=== PATIENT | female | born 1955 | race Caucasian/White ===

== ENCOUNTER 2020-03-17 19:29 | Emergency (ER) | payer OTHER ==
--- OUTSIDE RECORDS SUMMARY | 2020-03-17 19:31 | XMS REPORT | Continuity of Care Document ---
:1955 Author Organization [facility] t Address [address] [place] [address] Care Team Providers Name Role Phone Natalya Silva MD Attending Clinician Cuauhtemoc ARREOLA Attending Clinician Filiberto ARREOLA R Attending Clinician Problems This patient has no known problems. Allergies, Adverse Reactions, Alerts This patient has no known allergies or adverse reactions. Medications This patient has no known medications. Procedures This patient has no known procedures. Encounters Start End Encounter Admission Attending Care Care Encounter Source Date/Time Date/Time Type Type Clinicians Facility Department ID 2020-03-13 2020-03-13 Refill Raza Silva [facility] [id number] 00:00:00 00:00:00 Natalya Leyva [id number] [place] [id number] Professio [phone] nal [address] [place] [address] 2020-03-13 2020-03-13 Refill Cuauhtemoc [facility] [id number] 00:00:00 00:00:00 Miguel Ángel Leyva [id number] [place] [id number] Professio [id number] nal 044 [facility] 2020-02-20 2020-02-20 Office Abilio De Los Santos [facility] [id number] 08:26:37 10:27:19 Visit [facility] [id number] EYE [id number] [place] [phone] [id number] Results This patient has no known results.
--- OUTSIDE RECORDS SUMMARY | 2020-03-17 19:32 | XMS REPORT | Summary of Care ---
:1955 Author Organization [facility] - Health Address [address] [place], [place] [address] Care Team Providers Name Role Phone Kasey Louis MD Primary Care Provider [phone] Kim Odonnell MD Unavailable Encounter Details Date Type Department Care Team Description 12/23/2019 Orders Only [facility] Doctor Unassigned, No [address] [facility] [place] [address] Allergies Active Allergy Reactions Severity Noted Date Comments Morphine Sulfate 07/14/2005 documented as of this encounter (statuses as of 12/23/2019) Medications Medication Sig Dispensed Refills Start Date End Date Status Diclofenac Sodium Take 2-4 grams 100 g 3 04/07/2017 Active (VOLTAREN) 1 % twice a day as gelIndications: needed for pain Trochanteric bursitis of right hip bacitracin-polymyxin B Place 0.5 Inches 3.5 g 3 11/15/2017 Active oph 500-10,000 in both eyes unit/gram ophthalmic every 8 (eight) ointment hours. latanoprost 0.005 % Place 1 Drop in 7.5 mL 4 12/14/2017 Active ophthalmic drops both eyes at bedtime. traMADOL 50 mg Take 1 tablet by 60 tablet 0 09/19/2018 Active tabletIndications: mouth every 6 Cervicalgia, Chronic (six) hours as low back pain without needed for Pain sciatica, unspecified (scale 7-10). back pain laterality levothyroxine 112 mcg Take 1 tablet by 90 tablet 3 01/09/2019 Active tabletIndications: mouth every Hypothyroidism, morning. unspecified type lisinopril 10 mg Take 1 tablet by 90 tablet 5 01/09/2019 Active tabletIndications: mouth daily. Essential hypertension traZODone 50 mg Take 1 tablet by 30 tablet 5 07/05/2019 Active tabletIndications: mouth at Insomnia, unspecified bedtime. type ezetimibe 10 mg Take 1 tablet by 90 tablet 1 07/05/2019 Active tabletIndications: mouth daily. Dyslipidemia, Type 2 diabetes mellitus without complication, without long-term current use of insulin gabapentin 300 mg Take 1 capsule 90 capsule 5 07/05/2019 Active capsuleIndications: by mouth 3 Chronic low back pain (three) times without sciatica, daily. unspecified back pain laterality, Chronic pain syndrome glipiZIDE 10 mg Take 1 tablet by 90 tablet 3 07/05/2019 Active tabletIndications: Type mouth daily. 2 diabetes mellitus without complication, without long-term current use of insulin metFORMIN 1,000 mg Take 1 tablet by 60 tablet 11 07/05/2019 Active tabletIndications: Type mouth 2 (two) 2 diabetes mellitus times daily with without complication, meals. without long-term current use of insulin doxycycline hyclate 100 Take 1 tablet by 20 tablet 0 0 Active mg tabletIndications: mouth 2 (two) Chronic low back pain times daily. without sciatica, unspecified back pain laterality, Acute cystitis without hematuria methocarbamol 500 mg TAKE 1 TABLET BY 180 tablet 1 09/30/2019 Active tabletIndications: MOUTH TWICE Chronic right shoulder DAILY NEEDED pain FOR PAIN BYDUREON BCISE 2 inject 2 mg 4 Syringe 2 09/30/2019 Active mg/0.85 mL under the skin AtInIndications: Type 2 weekly. diabetes mellitus without complication, without long-term current use of insulin MELOXICAM 15 mg Take 1 tablet by 90 tablet 0 10/15/2019 Active tabletIndications: mouth once daily Arthritis documented as of this encounter (statuses as of 12/23/2019) Active Problems Problem Noted Date Acute cystitis without hematuria 07/08/2019 Insomnia, unspecified type 07/05/2019 Anxiety 07/05/2019 Chronic low back pain without sciatica, unspecified ba ck pain laterality 07/05/2019 Chronic pain syndrome 07/05/2019 Need for vaccination against Streptococcus pneumoniae using pneumococcal 07/05/2019 conjugate vaccine 13 Need for influenza vaccination 07/05/2019 Acute right-sided low back pain without sciatica 07/04 Dyslipidemia 07/05/2019 Neuropathy 07/05/2019 Muscle spasticity 07/05/2019 Dermatochalasis, unspecified laterality 09/05/2017 Overview: Added automatically from request for andres yin [id number] Myogenic ptosis, bilateral 09/05/2017 Overview: Added automatically from request for andres yin [id number] Pseudophakia of left eye 07/13/2017 Senile nuclear sclerosis right eye 07/13/2017 Essential hypertension 11/30/2016 Dermatochalasis 01/12/2016 Glaucoma suspect of both eyes 01/12/2016 Vitamin D deficiency 11/04/2015 AC separation, type 3, left, sequela 10/01/2015 Postoperative hypothyroidism 05/04/2015 Hyperlipidemia 05/04/2015 Hypocalcemia 05/04/2015 Postmenopausal 05/04/2015 Cervicalgia of sowealjf-lkvnuje-yjlcr region 5 Arthropathy of cervical facet joint 02/15/2015 Medicare annual wellness visit, initial 01/06/2015 Type 2 diabetes mellitus without complication 10/10/19 15 Dizziness and giddiness 12/27/2005 documented as of this encounter (statuses as of 12/23/2019) Resolved Problems Problem Noted Date Resolved Date Senile nuclear sclerosis, bilateral 02/13/201706/29 Overview: Added automatically from request for andres yin [id number] Cataracts, bilateral 01/12/2016 07/13/2017 Chest pain 12/26/2015 07/05/2019 Scarlet albicans infection 11/13/2015 07/05/2019 documented as of this encounter (statuses as of 12/23/2019) Immunizations Name Administration Dates Next Due Influenza Virus Vaccine 12/23/2017 Influenza Virus Vaccine Quad ID [id number] YRS 06/19/2017, 2014 Pneumococcal 13 Conjugate, PCV13 (Prevnar 13) 07/05/2019 documented as of this encounter Social History Tobacco Use Types Packs/Day Years Used Date Former Smoker Cigarettes 1 28 Quit: 10/09/18 97 Smokeless Tobacco: Never Used Alcohol Use Drinks/Week oz/Week Comments Yes rarely Sex Assigned at Date Recorded Not on file COVID-19 Exposure Response Date Recorded In the last month, have you been in contact with No / Unsure 12/19/2019 10:08 AM CDT someone who was confirmed or suspected to have Coronavirus / COVID-19? documented as of this encounter Last Filed Vital Signs Not on filedocumented in this encounter Plan of Treatment Date Type Specialty Care Team Description 01/13/2020 Hospital Encounter Surgery Favio Hahn MD [address], [place] [phone] 01/13/2020 Surgery Surgery Favio Hahn CERVICAL EP CLAUDINE Caruso MD STEROID INJECTION [address] [place] [phone] 05/06/2020 Office Visit Family Medicine Miguel Ángel Posadas MD [address] [place] [address] Health Maintenance Due Date Last Done Comments DTaP,Tdap,and Td Vaccines (1 - 1973 Tdap) COLON CANCER SCREENING ANNUAL 2004 FIT/FOBT COLON CANCER SCREENING FIT DNA 2004 EVERY 3 YEARS COLON CANCER SCREENING 2004 SIGMOIDOSCOPY EVERY 5 YEARS Zoster Recombinant Vaccine 2004 (SHINGRIX) (1 of 2) Breast Cancer Screening 06/22/2018 06/22/2017 (MAMMOGRAM) EYE EXAM 07/13/2018 07/13/2017, 04/14/2017, 03/07/2017, Additional history exists FOOT EXAM 11/08/2018 11/08/2017, 11/08/2017, 08/07/2017, Additional history exists URINE MICROALBUMIN 11/13/2018 11/13/2017, 11/04/2015, 10/09/2014 Medicare Wellness Visit 2019 Osteoporosis Screening 2019 INFLUENZA VACCINE (#1) 2019 12/23/2017 HgA1C 01/05/2020 07/05/2019, 10/31/2018, 11/08/2017, Additional history exists CREATININE (SERUM) 07/04/2020 07/05/2019, 11/13/2017, 03/15/2017, Additional history exists LDL-C 07/04/2020 07/05/2019, 11/13/2017, 11/30/2016, Additional history exists PNEUMOCOCCAL VACCINES 65+ (2 of 2 07/04/2020 07/05/2019 - PPSV23) Depression Screening 12/08/2020 12/09/2019 COLONOSCOPY 03/17/2021 03/17/2011 (Previously completed) Colorectal Cancer Screening 03/17/2021 HEPATITIS C (HCV) SCREEN Completed 04/19/2017 documented as of this encounter Implants Implanted Type Area Leases And Land Supervisor Device Shelf Model / Serial Identifier Expiration / Lot Date Lens, Ronnie #[id number] 20.5d - [id number] LENS Left: Eye Ronnie 01/28/2021 SN60WF 20.5D / Implanted: Qty: 1 on 03/06/2017 by Abilio De Los Santos MD at [facility] [place] [address] [id number] / 0 documented as of this encounter Procedures Procedure Name Priority Date/Time Associated Diagnosis Comme nts ASSIGNMENT OF BENEFITS Routine 12/23/2019 6:28 AM CDT documented in this encounter Results Not on filedocumented in this encounter Insurance Payer Benefit Plan / Subscriber ID Effective Dates Phone Addre ss Type Group MEDICARE MEDICARE PART [id number] 2019-Presen [phone] [address] Medicare A & B t 2 [id number] [place] [address] [facility] MEDICAID OF [id number] 2019-Presen [phone] [address] Medicaid [place] t 0 [id number] [place] [address] documented as of this encounter
--- OUTSIDE RECORDS SUMMARY | 2020-03-17 19:32 | XMS REPORT | Summary of Care ---
:1955 Author Organization [facility] Address [address] [place] [address] Care Team Providers Name Role Phone Kasey Louis MD Primary Care Provider [phone] Kim Odonnell MD Unavailable Reason for Visit Reason Comments Pre-Op Exam Auth/Cert Status Reason Specialty Diagnoses / Referred By Referred To Procedures Contact Contact Clinical Medical Diagnoses Cervicalgia Cervicalgia [M54.2] [facility] Procedures COVID-19 (ID NOW RAPID TESTING) COVID PREOP [address] [place] [address] Encounter Details Date Type Department Care Team Description 12/20/2019 Laboratory Only [facility] Favio Hahn MD [id number] [place] [address] Preop testing Phlebotomy Only, [facility] (Primary Dx) [facility] [address] [place] [address] Allergies Active Allergy Reactions Severity Noted Date Comments Morphine Sulfate 07/14/2005 documented as of this encounter (statuses as of 12/20/2019) Medications Medication Sig Dispensed Refills Start Date [...] as of this encounter (statuses as of 12/20/2019) Active Problems Problem Noted Date Acute cystitis [...] Overview: Added automatically from request for andres annamaria [id number] Myogenic ptosis, bilateral 09/05/2017 Overview: Added automatically from request for andres annamaria [id number] Pseudophakia of left eye 07/13/2017 Senile nuclear sclerosis right eye 07/13/2017 Essential hypertension 11/30/2016 Dermatochalasis 01/12/2016 Glaucoma suspect of both eyes 01/12/2016 Vitamin D deficiency 11/04/2015 AC separation, type 3, left, sequela 10/01/2015 Postoperative hypothyroidism 05/04/2015 Hyperlipidemia 05/04/2015 Hypocalcemia 05/04/2015 Postmenopausal 05/04/2015 Cervicalgia of ewgjfrac-owysmzp-kewrp region 5 Arthropathy of cervical facet joint 02/15/2015 Medicare annual wellness visit, initial 01/06/2015 Type 2 diabetes mellitus without complication 10/10/19 15 Dizziness and giddiness 12/27/2005 documented as of this encounter (statuses as of 12/20/2019) Resolved Problems Problem Noted Date Resolved Date Senile nuclear sclerosis, bilateral 02/13/201706/29 Overview: Added automatically from request for andres annamaria [id number] Cataracts, bilateral 01/12/2016 07/13/2017 Chest pain 12/26/2015 07/05/2019 Scarlet albicans infection 11/13/2015 07/05/2019 documented as of this encounter (statuses as of 12/20/2019) Immunizations Name Administration Dates Next Due Influenza [...] Treatment Date Type Specialty Care Team Description 12/23/2019 Hospital Encounter Surgery Favio Hahn MD [address] [place] [address] [phone] 12/23/2019 Anesthesia Event Surgery Fontanilla, R III, DRILL SHARPENER OPERATOR [address] [place] [address] 12/23/2019 Surgery Surgery Favio Hahn CERVICAL SHAGUFTA Caruso MD STEROID INJECTION [address] [place] [address] 01/13/2020 Hospital Encounter Surgery Favio Hahn MD [address] [place] [phone] 01/13/2020 Surgery Surgery Favio Hahn CERVICAL SHAGUFTA Caruso MD STEROID INJECTION [address] [place] [phone] 05/06/2020 Office Visit Family Medicine Miguel Ángel Posadas MD [address] [place] [address] [address] [place] [address], [place] [address] [phone] Name Type Priority Associated Diagnoses Date/Ti me COVID-19 (ID NOW RAPID LAB Routine Preop testing 11/30 11:22 AM CDT TESTING) Name Type Priority Associated Diagnoses Order S chedule COVID-19 (ID NOW RAPID LAB Routine Preop testing Expe cted: 12/20/2019, TESTING) Expires: 2020 Health Maintenance Due Date Last Done Comments [...] of this encounter Implants Implanted Type Area Fuel Conversion Technician Device Shelf Model / Serial Identifier Expiration / Lot Date Lens, Ronnie #Sn60wf 20.5d - [id number] LENS Left: Eye Ronnie 01/28/2021 SN60WF 20.5D / Implanted: Qty: 1 on 03/06/2017 by Abilio De Los Santos MD at [facility] 2 [id number] / 0 documented as of this encounter Results Not on filedocumented in this encounter Visit Diagnoses Diagnosis Preop testing - Primary Preoperative examination, unspecified documented in this encounter Additional Health Concerns Infection Onset Date Last Indicated Resolved Time COVID-19 Rule Out 12/20/2019 12/20/2019 documented as of this encounter Insurance Payer Benefit Plan / Subscriber ID Effective Dates Phone Addre ss Type Group MEDICARE MEDICARE PART [id number] 2019-Presen [phone] [address] Medicare A & B t 2 [id number] [place] [address] [facility] MEDICAID OF [id number] 2019-Presen [phone] [address] Medicaid [place] t 0 [id number] [place] [address] documented as of this encounter
--- OUTSIDE RECORDS SUMMARY | 2020-03-17 19:32 | XMS REPORT | Summary of Care ---
:1955 Author Organization [facility] Address [address] [place] [address] Care Team Providers Name Role Phone Kasey Louis MD Primary Care Provider [phone] Kim Odonnell MD Unavailable Reason for Referral (Routine) Status Reason Specialty Diagnoses / Referred By Referred To Procedures Contact Contact New Request Diagnostic Diagnoses Cervicalgia of jyreoikr-hjvbvjf-rmqvq region [place], Radiology Procedures FL TIME OR (NON-REPORTABLE) Favio Caruso MD [id number], [place] [address] Reason for Visit Auth/Cert Status Reason Specialty Diagnoses / Procedures Referred By C ontact Referred To Contact Surgery Diagnoses Cervicalgia Radiculopathy, cervical region M54.2 (ICD-10-CM) - Cervicalgia Radiculopathy cervical region M54.12 (ICD-10-CM) - Radiculopathy, cervical region Ad c Pre/Pacu/Post Procedures [facility] CODING HELP [place] NJX DX/THER SBST INTRLMNR CRV/THRC W/IMG GDN CHG FLUOR NEEDLE/CATH SPINE/PARASPINAL DX/THER ADDON CERVICAL EPIDURAL STEROID INJECTION 10548 - [place] NJX DX/THER SBST INTRLMNR CRV/THRC W/IMG GDN [address] [place] [address] - CHG FLUOR NEEDLE/CATH SPINE/ PARASPINAL DX/THER ADDON [employer] [place], [place] [address] Phone: Fax: Encounter Details Date Type Department Care Team Description 12/23/2019 [facility] [place], [place] [address] kiran [address] [place] [address] [id number] [place] [phone] Allergies Active Allergy Reactions Severity Noted Date [...] Added automatically from request for andres annamaria [id number] Myogenic ptosis, bilateral 09/05/2017 Overview: Added automatically from request for andres annamaria [id number] Pseudophakia of left eye 07/13/2017 Senile nuclear sclerosis right eye 07/13/2017 Essential hypertension 11/30/2016 Dermatochalasis 01/12/2016 Glaucoma suspect of both eyes 01/12/2016 Vitamin D deficiency 11/04/2015 AC separation, type 3, left, sequela 10/01/2015 Postoperative hypothyroidism 05/04/2015 Hyperlipidemia 05/04/2015 Hypocalcemia 05/04/2015 Postmenopausal 05/04/2015 Cervicalgia of zyqndwhp-gzkxbge-xbosa region 5 Arthropathy of cervical facet joint 02/15/2015 Medicare annual wellness visit, initial 01/06/2015 Type 2 diabetes mellitus without complication 10/10/19 15 Dizziness and giddiness 12/27/2005 documented as of this encounter (statuses as of 12/23/2019) Resolved Problems Problem Noted Date Resolved Date Senile nuclear sclerosis, bilateral 02/13/201706/29 Overview: Added automatically from request for andres yin [id number] Cataracts, bilateral 01/12/2016 07/13/2017 Chest pain 12/26/2015 [...] of this encounter Last Filed Vital Signs Vital Sign Reading Time Taken Comments Blood Pressure 122/58 12/23/2019 8:10 AM CDT Pulse 81 12/23/2019 8:10 AM CDT Temperature 37.1 C (98.8 F) 12/23/2019 7:42 AM CDT Respiratory Rate 15 12/23/2019 8:10 AM CDT Oxygen Saturation 99% 12/23/2019 8:10 AM CDT Inhaled Oxygen Concentration - - Weight 78.9 kg (174 lb) 12/23/2019 6:43 AM CDT Height 160 cm (5' 3") 12/23/2019 6:43 AM CDT Body Mass Index 30.82 12/23/2019 6:43 AM CDT documented in this encounter Discharge Summaries Favio Hahn MD - 12/23/2019 7:41 AM CDTCONDITION AT DISCHARGE: Patient was discharged from the facility in stable condition. Please see andrea parham instructions. FOLLOW UP CARE: See post op instructions. DISCHARGE DISPOSITION: HOME DISCHARGE INSTRUCTIONS GIVEN TO: PATIENT documented in this encounter Discharge Instructions Avelina Caban RN - 12/23/2019POST OPERATIVE DISCHARGE INSTRUCTIONS For patients who have had local anesthesia with sedation or general anesthesia: 1. The medicine which was used for sedation or to put you to sleep will be acting in your body for the next 24 hours. You might feel a little sleepy when you get home. This feeling will slowly wear off. For the next 24 hours, the adult patient should not: A. Drive a car, operate machinery or power tools. B. Drink any alcoholic beverages (including beer). C. Make any important decisions, such as sign important papers. D. Children should rest at home, but may be up and about according to the doctor's instructions. 2. You may have some pain. A prescription for pain may be given by the doctor. This should be taken as directed. If the doctor prescribes nothing for pain you may take a non-prescription pain medication, which can be purchased at the drug store. Please follow directions on the label. 3. Eat light foods (Jell-o, soup, crackers, soft drinks, etc.) as tolerated without feeling sick to your stomach, then progressing to more solid foods. Drink as much liquid as you can tolerate. 4. We strongly suggest that a responsible adult be with you for the rest of the day and also during the night for your protection and safety. 5. Refer any questions regarding your condition and report any of the following signs to your surgeon: A. Excessive bleeding from surgical area. B. Excessive swelling of or around surgical area. C. Redness of surgical area. D. Temperature of 101 degrees or above. E. Excessive pain not relieved by medication. F. Numbness or weakness. 6. Call Dr. Hahn for any problems and for follow up appointment. 7. If unable to reach your physician, call [facility] at [phone] for physician freight traffic consultant. In case of emergency, go to nearest emergency room. 8. Your symptoms may remain the same or occasionally become a little worse over the next 48 hours. Rest and the application of a cold compress may resolve these symptoms. documented in this encounter Plan of Treatment Date Type Specialty Care Team Description 01/13/2020 Hospital Encounter Surgery Favio Hahn MD [address] [place] [phone] 01/13/2020 Surgery Surgery Favio Hahn CERVICAL EP CLAUDINE Caruso MD STEROID INJECTION [address] [place] [address] 05/06/2020 Office Visit Family Medicine Miguel Ángel Posadas MD [address] [facility] [address] [place], [place] [address] Name Type Priority Associated Diagnoses Date/Ti me FL TIME OR IMAGING Routine Cervicalgia of 12/23/2019 7 :45 AM CDT (NON-REPORTABLE) wmtumaeq-riwhzaf-khgwb region Name Type Priority Associated Diagnoses Order S chedule POCT Glucose LAB Routine ONCE for 1 Occu rrences starting 2019 until 0 FL TIME OR IMAGING Routine Cervicalgia of ONCE for 1 Oc currences (NON-REPORTABLE) cxzlgscq-umfrlfe-hwqic s tarting 12/23/2019 region until 0 Health Maintenance Due Date Last Done Comments [...] 2 07/04/2020 07/05/2019 - PPSV23) Depression Screening 12/22/2020 12/23/2019 COLONOSCOPY 03/17/2021 03/17/2011 (Previously completed) Colorectal Cancer Screening 03/17/2021 HEPATITIS C (HCV) SCREEN Completed 04/19/2017 documented as of this encounter Implants Implanted Type Area Account Services Manager Device Shelf Model / Serial Identifier Expiration / Lot Date Lens, Ronnie #[id number] 20.5d - [id number] LENS Left: Eye Ronnie 01/28/2021 SN60WF 20.5D / Implanted: Qty: 1 on 03/06/2017 by Abilio De Los Santos MD at [facility] 3 [id number] / 0 documented as of this encounter Results Not on filedocumented in this encounter Visit Diagnoses Diagnosis Cervicalgia of qhkhnuob-cigdxka-xrcni re gion - Primary documented in this encounter Administered Medications Medication Order MAR Action Action Date Dose Rate Site lidocaine 1% (PF) (XYLOCAINE) injection 1 mL 1 mL, Infiltration, PRN, Starting Mon at 0652, Until Discontinued, Routine, Surgery/Procedure, DSU Pre-op Medication Order MAR Action Action Date Dose Rate Site lactated ringers IV infusion New Bag 12/23/2019 7:03 AM CDT 1,000 mL 20 mL/hr 1,000 mL at 20 mL/hr, 1,000 mL, IV Infusion, ONCE, 1 dose, 12/23/19 at 0700, Routine, DSU Pre-op documented in this encounter Insurance Payer Benefit Plan / Subscriber ID Effective Dates Phone Addre ss Type Group MEDICARE MEDICARE PART [id number] 2019-Presen [phone] [address] Medicare A & B t 2 [id number] [place] [address] [facility] MEDICAID OF [id number] 2019-Presen [phone] [address] Medicaid [place] t 0 [id number] [place] [address] documented as of this encounter
--- OUTSIDE RECORDS SUMMARY | 2020-03-17 19:32 | XMS REPORT | Summary of Care ---
:1955 Author Organization [facility] Address [address] [place] [address] Care Team Providers Name Role Phone Kasey Louis MD Primary Care Provider Kim Odonnell MD Unavailable Reason for Visit Reason Comments Rx Concern/Question Encounter Details Date Type Department Care Team Description 12/13/2019 Telephone [facility] Pediatric Melita Louis Rx Concern/Question and Adult Primary Care- MD Arin [address], [address] [place] [address] [place] [address] [phone] Allergies Active Allergy Reactions Severity Noted Date Comments Morphine Sulfate 07/14/2005 documented as of this encounter (statuses as of 01/03/2020) Medications Medication Sig Dispensed Refills Start Date [...] as of this encounter (statuses as of 01/03/2020) Active Problems Problem Noted Date Acute cystitis [...] Added automatically from request for andres annamaria [id number] Myogenic ptosis, bilateral 09/05/2017 Overview: Added automatically from request for andres annamaria [id number] Pseudophakia of left eye 07/13/2017 Senile nuclear sclerosis right eye 07/13/2017 Essential hypertension 11/30/2016 Dermatochalasis 01/12/2016 Glaucoma suspect of both eyes 01/12/2016 Vitamin D deficiency 11/04/2015 AC separation, type 3, left, sequela 10/01/2015 Postoperative hypothyroidism 05/04/2015 Hyperlipidemia 05/04/2015 Hypocalcemia 05/04/2015 Postmenopausal 05/04/2015 Cervicalgia of cjdikpbt-xhnreyt-uphii region 5 Arthropathy of cervical facet joint 02/15/2015 Medicare annual wellness visit, initial 01/06/2015 Type 2 diabetes mellitus without complication 10/10/19 15 Dizziness and giddiness 12/27/2005 documented as of this encounter (statuses as of 01/03/2020) Resolved Problems Problem Noted Date Resolved Date Senile nuclear sclerosis, bilateral 02/13/201706/29 Overview: Added automatically from request for andres annamaria [id number] Cataracts, bilateral 01/12/2016 07/13/2017 Chest pain 12/26/2015 07/05/2019 Scarlet albicans infection 11/13/2015 07/05/2019 documented as of this encounter (statuses as of 01/03/2020) Immunizations Name Administration Dates Next Due Influenza [...] Signs Not on filedocumented in this encounter Miscellaneous Notes Telephone Encounter - Alyssa Rosado RN - 01/03/2020 2:19 PM CDTThis is being sent to you as part of [facility] Chart Maintenance. The encounter has been open longer than72 hours. Encounter closed. Alyssa LANDRY RN- Nurse Clinician REPLACED BY [facility] elephone Encounter - Nilo Palmer - 12/13/2019 10:14 AM CDTPrescription change request paperwork placed in provider's box. documented in this encounter Plan of Treatment Date Type Specialty Care Team Description 01/13/2020 Hospital Encounter Surgery Favio Hahn MD [address] [place] [phone] 01/13/2020 Surgery Surgery Favio Hahn CERVICAL EP CLAUDINE Caruso MD STEROID INJECTION [address] [phone] 05/06/2020 Office Visit Family Medicine Miguel Ángel Posadas MD [facility] [address] [place], [place] [address] Health Maintenance Due Date [...] of this encounter Implants Implanted Type Area User Interface Engineer Device Shelf Model / Serial Identifier Expiration / Lot Date Lens, Ronnie #[id number] 20.5d - [id number] LENS Left: Eye Ronnie 01/28/2021 SN60WF 20.5D / Implanted: Qty: 1 on 03/06/2017 by Abilio De Los Santos MD at [facility] 6 [id number] / 0 documented as of this encounter Results Not on filedocumented in this encounter Additional Health Concerns Infection Onset Date Last Indicated Resolved Time COVID-19 Rule Out 12/20/2019 12/20/2019 12/20/2019 12: 03 PM CDT documented as of this encounter Insurance Payer Benefit Plan / Subscriber ID Effective Dates Phone Addre ss Type Group MEDICARE MEDICARE PART [id number] 2019-Raúl [phone] [address] Medicare A & B t 2 [id number] [place] [address] [facility] MEDICAID OF [id number] 2019-Raúl [phone] [address] Medicaid [place] t 0 [id number] [place] [address] documented as of this encounter
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
--- OUTSIDE RECORDS SUMMARY | 2020-03-17 19:33 | XMS REPORT | Summary of Care ---
:1955 Author Organization [facility] Address [address] [place] [address] Care Team Providers Name Role Phone Kasey Louis MD Primary Care Provider [phone] Kim Odonnell MD Unavailable Reason for Visit Reason Comments LAB WORK Encounter Details Date Type Department Care Team Description 01/17/2020 Laboratory Only [facility] Favio Hahn MD [id number] [place] [address] Pre-operative Phlebotomy Only, Adc Test clearance (Primary [facility]) [address] [place] [address] Allergies Active Allergy Reactions Severity Noted Date Comments Morphine Sulfate 07/14/2005 documented as of this encounter (statuses as of 01/17/2020) Medications Medication Sig Dispensed Refills Start Date [...] as of this encounter (statuses as of 01/17/2020) Active Problems Problem Noted Date Acute cystitis [...] Added automatically from request for andres annamaria [id number] Myogenic ptosis, bilateral 09/05/2017 Overview: Added automatically from request for andres annamaria [id number] Pseudophakia of left eye 07/13/2017 Senile nuclear sclerosis right eye 07/13/2017 Essential hypertension 11/30/2016 Dermatochalasis 01/12/2016 Glaucoma suspect of both eyes 01/12/2016 Vitamin D deficiency 11/04/2015 AC separation, type 3, left, sequela 10/01/2015 Postoperative hypothyroidism 05/04/2015 Hyperlipidemia 05/04/2015 Hypocalcemia 05/04/2015 Postmenopausal 05/04/2015 Cervicalgia of azofaigt-lxnqstv-wrrwc region 5 Arthropathy of cervical facet joint 02/15/2015 Medicare annual wellness visit, initial 01/06/2015 Type 2 diabetes mellitus without complication 10/10/19 15 Dizziness and giddiness 12/27/2005 documented as of this encounter (statuses as of 01/17/2020) Resolved Problems Problem Noted Date Resolved Date Senile nuclear sclerosis, bilateral 02/13/201706/29 Overview: Added automatically from request for andres annamaria [id number] Cataracts, bilateral 01/12/2016 07/13/2017 Chest pain 12/26/2015 07/05/2019 Scarlet albicans infection 11/13/2015 07/05/2019 documented as of this encounter (statuses as of 01/17/2020) Immunizations Name Administration Dates Next Due Influenza [...] Signs Not on filedocumented in this encounter Nursing Notes Marcia Kong - 01/17/2020 1:00 PM CDTcovid documented in this encounter Plan of Treatment Date Type Specialty Care Team Description 01/20/2020 Anesthesia Event Surgery Abilio Sotelo C [address] [phone] 01/20/2020 Hospital Encounter Surgery Favio Hahn MD [address] [place] [address] [phone] 01/20/2020 Surgery Surgery Favio Hahn, CERVICAL EPIDURAL STEROID INJECTION [address] [place] [address] 05/06/2020 Office Visit Family Medicine Miguel Ángel Posadas MD [address] [place], [place] [address] [phone] Name Type Priority Associated Diagnoses Order S zhane COVID-19 (ID NOW RAPID LAB Routine Pre-operative felicita dawson Expected: 01/17/2020, TESTING) Expires: 2020 Health Maintenance Due Date [...] of this encounter Implants Implanted Type Area Engine Watchman Device Shelf Model / Serial Identifier Expiration / Lot Date Lens, Ronnie #Sn60wf 20.5d - [id number] LENS Left: Eye Ronnie 01/28/2021 SN60WF 20.5D / Implanted: Qty: 1 on 03/06/2017 by Abilio De Los Santos MD at [facility] 5 [id number] / 0 documented as of this encounter Results Not on filedocumented in this encounter Visit Diagnoses Diagnosis Pre-operative clearance - Primary Preoperative examination, unspecified documented in this encounter Additional Health Concerns Infection Onset Date Last Indicated Resolved Time COVID-19 Rule Out 01/17/2020 01/17/2020 documented as of this encounter Insurance Payer Benefit Plan / Subscriber ID Effective Dates Phone Addre ss Type Group MEDICARE MEDICARE PART [id number] 2019-Presen [phone] [address] Medicare A & B t 2 [id number] [place] [id number] [facility] MEDICAID OF [id number] 2019-Presen [phone] [address] Medicaid [place] t 0 [id number] [place] [address] documented as of this encounter
--- OUTSIDE RECORDS SUMMARY | 2020-03-17 19:33 | XMS REPORT | Summary of Care ---
:1955 Author Organization [facility] - Health Address [address] [place], [place] [id number] Care Team Providers Name Role Phone Kasey Louis MD Primary Care Provider [phone] Kim Odonnell MD Unavailable Encounter Details Date Type Department Care Team Description 01/17/2020 Orders Only [facility] Doctor Unassigned, No [address] [facility] [place] [address] Allergies Active Allergy Reactions Severity Noted Date [...] Added automatically from request for andres yin [id number] Myogenic ptosis, bilateral 09/05/2017 Overview: Added automatically from request for andres yin [id number] Pseudophakia of left eye 07/13/2017 Senile nuclear sclerosis right eye 07/13/2017 Essential hypertension 11/30/2016 Dermatochalasis 01/12/2016 Glaucoma suspect of both eyes 01/12/2016 Vitamin D deficiency 11/04/2015 AC separation, type 3, left, sequela 10/01/2015 Postoperative hypothyroidism 05/04/2015 Hyperlipidemia 05/04/2015 Hypocalcemia 05/04/2015 Postmenopausal 05/04/2015 Cervicalgia of imjaypwn-qgswaun-sopwa region 5 Arthropathy of cervical facet joint 02/15/2015 Medicare annual wellness visit, initial 01/06/2015 Type 2 diabetes mellitus without complication 10/10/19 15 Dizziness and giddiness 12/27/2005 documented as of this encounter (statuses as of 01/17/2020) Resolved Problems Problem Noted Date Resolved Date Senile nuclear sclerosis, bilateral 02/13/201706/29 Overview: Added automatically from request for andres yin [id number] Cataracts, bilateral 01/12/2016 07/13/2017 Chest pain 12/26/2015 [...] 01/20/2020 Anesthesia Event Surgery Abilio Sotelo [place] [address] [place] [id number] 01/20/2020 Hospital Encounter Surgery Favio Hahn MD [address], [place] [address] 01/20/2020 Surgery Surgery Favio Hahn, CERVICAL EPIDURAL STEROID INJECTION [address] [place] [address] 05/06/2020 Office Visit Family Medicine Miguel Ángel Posadas MD [address] [facility] [address] [place] [address] Health Maintenance Due Date [...] of this encounter Implants Implanted Type Area Gunner'S Mate Device Shelf Model / Serial Identifier Expiration / Lot Date Lens, Ronnie #[id number] 20.5d - [id number] LENS Left: Eye Ronnie 01/28/2021 SN60WF 20.5D / Implanted: Qty: 1 on 03/06/2017 by Abilio De Los Santos MD at [facility] 4 [id number] / 0 documented as of this encounter Procedures Procedure Name Priority Date/Time Associated Diagnosis Comme nts CONSENT/REFUSAL FOR Routine 01/17/2020 2:06 PM DIAGNOSIS AND TREATMENT CDT ASSIGNMENT OF BENEFITS Routine 01/17/2020 2:05 PM CDT documented in this encounter Results Not on filedocumented in this encounter Insurance Payer Benefit Plan / Subscriber ID Effective Dates Phone Addre ss Type Group MEDICARE MEDICARE PART [id number] 2019-Presen [phone] [address] Medicare A & B t 2 [id number] [place] [id number] [facility] MEDICAID OF [id number] 2019-Presen [phone] [address] Medicaid [place] t 0 [id number] [place] [address] documented as of this encounter
--- OUTSIDE RECORDS SUMMARY | 2020-03-17 19:34 | XMS REPORT | Summary of Care ---
:1955 Author Organization [facility] Address [address] [place] [id number] Care Team Providers Name Role Phone Kasey Louis MD Primary Care Provider Kim Odonnell MD Unavailable Reason for Referral (Routine) Status Reason Specialty Diagnoses / Referred By Referred To Procedures Contact Contact New Request Diagnostic Diagnoses Cervicalgia of zjeyjjks-fujmzrr-ahkdm region [place], Radiology Procedures FL TIME OR (NON-REPORTABLE) Favio Caruso MD [id number], [place] [address] Reason for Visit Auth/Cert Status Reason Specialty Diagnoses / Procedures Referred By C ontact Referred To Contact Surgery Diagnoses Cervicalgia Radiculopathy, cervical region Radiculopathy cervical region M54.12 (ICD-10-CM) - Radiculopathy, cervical region cervicalgia M54.2 (ICD-10-CM) - Cervicalgia Adc Pre/Pacu/Post Procedures [facility] CODING HELP [place] NJX DX/THER SBST INTRLMNR CRV/THRC W/IMG GDN CHG FLUOR NEEDLE/CATH SPINE/PARASPINAL DX/THER ADDON CERVICAL EPIDURAL STEROID INJECTION [id number] - [place] NJX DX/THER SBST INTRLMNR CRV/THRC W/IMG GDN [address] [place] [id number] - CHG FLUOR NEEDLE/CATH SPINE/ PARASPINAL DX/THER ADDON [address] [place], [place] [address] Phone: Fax: Encounter Details Date Type Department Care Team Description [facility]/20[facility] [place] [address] kiran [address] [place] [address] [id number] [place] [phone] Allergies Active Allergy Reactions Severity Noted Date [...] Added automatically from request for andres yin [id number] Myogenic ptosis, bilateral 09/05/2017 Overview: Added automatically from request for andres yin [id number] Pseudophakia of left eye 07/13/2017 Senile nuclear sclerosis right eye 07/13/2017 Essential hypertension 11/30/2016 Dermatochalasis 01/12/2016 Glaucoma suspect of both eyes 01/12/2016 Vitamin D deficiency 11/04/2015 AC separation, type 3, left, sequela 10/01/2015 Postoperative hypothyroidism 05/04/2015 Hyperlipidemia 05/04/2015 Hypocalcemia 05/04/2015 Postmenopausal 05/04/2015 Cervicalgia of ezfjlcxa-xfpeajn-lhmkp region 5 Arthropathy of cervical facet joint 02/15/2015 Medicare annual wellness visit, initial 01/06/2015 Type 2 diabetes mellitus without complication 10/10/19 15 Dizziness and giddiness 12/27/2005 documented as of this encounter (statuses as of 01/20/2020) Resolved Problems Problem Noted Date Resolved Date Senile nuclear sclerosis, bilateral 02/13/201706/29 Overview: Added automatically from request for andres yin [id number] Cataracts, bilateral 01/12/2016 07/13/2017 Chest pain 12/26/2015 [...] Sign Reading Time Taken Comments Blood Pressure 125/57 01/20/2020 8:42 AM CDT Pulse 98 01/20/2020 6:50 AM CDT Temperature 36.8 C (98.3 F) 01/20/2020 8:12 AM CDT Respiratory Rate 16 01/20/2020 8:42 AM CDT Oxygen Saturation 100% 01/20/2020 8:42 AM CDT Inhaled Oxygen Concentration - - Weight 78.5 kg (173 lb) 01/16/2020 2:00 PM CDT Height 160 cm (5' 3") 01/16/2020 2:00 PM CDT Body Mass Index 30.65 01/16/2020 2:00 PM CDT documented in this encounter Discharge Summaries Favio Hahn MD - 01/20/2020 8:11 AM CDTCONDITION AT DISCHARGE: Patient was discharged from the facility in stable condition. Please see andrea parham instructions. FOLLOW UP CARE: See post op instructions. DISCHARGE DISPOSITION: HOME DISCHARGE INSTRUCTIONS GIVEN TO: PATIENT documented in this encounter Discharge Instructions Yessica Devlin RN - 01/20/2020POST OPERATIVE DISCHARGE INSTRUCTIONS For patients who have [...] If unable to reach your physician, call [facility] at [phone] for physician bond runner. In case of emergency, go to nearest emergency room. 8. Your symptoms may remain the same or occasionally become a little worse over the next 48 hours. Rest and the application of a cold compress may resolve these symptoms. APPOINTMENT HAS BEEN SCHEDULED FOR: DATE: TIME: documented in this encounter Plan of Treatment Date Type Specialty Care Team Description 05/06/2020 Office Visit Family Medicine Miguel Ángel Posadas MD [address] [place] [address] [place], [place] [address] Name Type Priority Associated Diagnoses Date/Ti me FL TIME OR IMAGING Routine Cervicalgia of 01/20/2020 7 :22 AM CDT (NON-REPORTABLE) lvznfdsd-xobmydg-bhymc region Name Type Priority Associated Diagnoses Order S chedule POCT Glucose LAB Routine ONCE for 1 Occu rrences starting 2019 until 0 EKG-12 LEAD HEART STATION Routine ONCE for 1 Occ urrences ROUTINE starting 2019 until 0 FL TIME OR IMAGING Routine Cervicalgia of ONCE for 1 Oc currences (NON-REPORTABLE) gnpgicdc-vxmouoq-rkmoy s tarting 01/20/2020 region until 0 Health Maintenance Due Date [...] of this encounter Implants Implanted Type Area Medical Secretary Device Shelf Model / Serial Identifier Expiration / Lot Date Lens, Ronnie #[id number] 20.5d - [id number] LENS Left: Eye Ronnie 01/28/2021 SN60WF 20.5D / Implanted: Qty: 1 on 03/06/2017 by Abilio De Los Santos MD at [facility] [place] [address] [id number] / 0 documented as of this encounter Results Not on filedocumented in this encounter Visit Diagnoses Diagnosis Cervicalgia of lgvcnsbn-tygwhpl-qxwlc re gion - Primary documented in this encounter Insurance Payer Benefit Plan / Subscriber ID Effective Dates Phone Addre ss Type Group MEDICARE MEDICARE PART [id number] 2019-Presen [phone] [address] Medicare A & B t 2 [id number] [place] [id number] [facility] MEDICAID OF [id number] 2019-Presen [phone] [address] Medicaid [place] t 0 [id number] [place] [address] documented as of this encounter
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
--- OUTSIDE RECORDS SUMMARY | 2020-03-17 19:34 | XMS REPORT | Summary of Care ---
:1955 Author Organization [facility] - Health Address [address] [place], [place] [address] Care Team Providers Name Role Phone Kasey Louis MD Primary Care Provider [phone] Kim Odonnell MD Unavailable Encounter Details Date Type Department Care Team Description 01/20/2020 Orders Only [facility] Doctor Unassigned, No [address] [facility] [place] [address] Allergies Active Allergy Reactions Severity Noted Date Comments Morphine Sulfate 07/14/2005 documented as of this encounter (statuses as of 01/21/2020) Medications Medication Sig Dispensed Refills Start Date [...] as of this encounter (statuses as of 01/21/2020) Active Problems Problem Noted Date Acute cystitis [...] Added automatically from request for andres yin [id number] Myogenic ptosis, bilateral 09/05/2017 Overview: Added automatically from request for andres yin [id number] Pseudophakia of left eye 07/13/2017 Senile nuclear sclerosis right eye 07/13/2017 Essential hypertension 11/30/2016 Dermatochalasis 01/12/2016 Glaucoma suspect of both eyes 01/12/2016 Vitamin D deficiency 11/04/2015 AC separation, type 3, left, sequela 10/01/2015 Postoperative hypothyroidism 05/04/2015 Hyperlipidemia 05/04/2015 Hypocalcemia 05/04/2015 Postmenopausal 05/04/2015 Cervicalgia of fzjuekrf-khmvvts-hijtr region 5 Arthropathy of cervical facet joint 02/15/2015 Medicare annual wellness visit, initial 01/06/2015 Type 2 diabetes mellitus without complication 10/10/19 15 Dizziness and giddiness 12/27/2005 documented as of this encounter (statuses as of 01/21/2020) Resolved Problems Problem Noted Date Resolved Date Senile nuclear sclerosis, bilateral 02/13/201706/29 Overview: Added automatically from request for andres yin [id number] Cataracts, bilateral 01/12/2016 07/13/2017 Chest pain 12/26/2015 07/05/2019 Scarlet albicans infection 11/13/2015 07/05/2019 documented as of this encounter (statuses as of 01/21/2020) Immunizations Name Administration Dates Next Due Influenza [...] Assigned at Date Recorded Not on file documented as of this encounter Last Filed Vital Signs Not on filedocumented in this encounter Plan of Treatment Date Type Specialty Care Team Description 05/06/2020 Office Visit Family Medicine Miguel Ángel Posadas MD [address] [place] [address] Dr Donovan [place], [place] [address] [phone] Health Maintenance Due Date Last Done Comments [...] of this encounter Implants Implanted Type Area Tactical Response Group Officer Device Shelf Model / Serial Identifier Expiration / Lot Date Lens, Ronnie #[id number] 20.5d - [id number] LENS Left: Eye Ronnie 01/28/2021 SN60WF 20.5D / Implanted: Qty: 1 on 03/06/2017 by Abilio De Los Santos MD at [facility] [place] [facility] 4 [id number] / 0 documented as of this encounter Procedures Procedure Name Priority Date/Time Associated Diagnosis Comme nts DAY SURGERY - ADC Routine 01/20/2020 12:01 AM CDT documented in this encounter Results Not on filedocumented in this encounter Insurance Payer Benefit Plan / Subscriber ID Effective Dates Phone Addre ss Type Group MEDICARE MEDICARE PART [id number] 2019-Presen [phone] Medicare A & B t 2 [id number] [place] [address] [facility] MEDICAID OF [id number] 2019-Presen [phone] [address] Medicaid [place] t 0 [id number] [place] [address] documented as of this encounter
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
--- OUTSIDE RECORDS SUMMARY | 2020-03-17 19:35 | XMS REPORT | Summary of Care ---
:1955 Author Organization [facility] - [facility] Address [address] [place], [place] [address] Care Team Providers Name Role Phone Kasey Louis MD Primary Care Provider [phone] Kim Odonnell MD Unavailable Reason for Visit Reason Comments Refill Request Encounter Details Date Type Department Care Team Description 03/13/2020 Refill [facility] and Raza Silva III, MD Refill Request Adult Primary Care- [address] [place] [address] Dr. Leyva [address] [place], [place] [address] [address] [place] [address] [phone] Allergies Active Allergy Reactions Severity Noted Date Comments Morphine Sulfate 07/14/2005 documented as of this encounter (statuses as of 03/13/2020) Medications Medication Sig Dispensed Refills Start Date End Date Status Diclofenac Sodium Take 2-4 100 g 3 04/07/2017 A ctive (VOLTAREN) 1 % grams twice a gelIndications: day as needed Trochanteric for pain bursitis of right hip bacitracin-polymyxi Place 0.5 3.5 g 3 11/15/2017 Active n B oph 500-10,000 Inches in unit/gram both eyes ophthalmic ointment every 8 (eight) hours. traMADOL 50 mg Take 1 tablet 60 tablet 0 09/19/2018 Active tabletIndications: by mouth Cervicalgia, every 6 (six) Chronic low back hours as pain without needed for sciatica, Pain (scale unspecified back 7-10). pain laterality levothyroxine 112 Take 1 tablet 90 tablet 3 01/09/2019 Active mcg by mouth tabletIndications: every Hypothyroidism, morning. unspecified type traZODone 50 mg Take 1 tablet 30 tablet 5 07/05/2019 Active tabletIndications: by mouth at Insomnia, bedtime. unspecified type ezetimibe 10 mg Take 1 tablet 90 tablet 1 07/05/2019 Active tabletIndications: by mouth Dyslipidemia, Type daily. 2 diabetes mellitus without complication, without long-term current use of insulin gabapentin 300 mg Take 1 90 capsule 5 07/05/2019 Active capsuleIndications: capsule by Chronic low back mouth 3 pain without (three) times sciatica, daily. unspecified back pain laterality, Chronic [...] of insulin doxycycline hyclate Take 1 tablet 20 tablet 0 07/08/2019 Active 100 mg by mouth 2 tabletIndications: (two) times Chronic low back daily. pain without sciatica, unspecified back pain laterality, Acute cystitis without hematuria methocarbamol 500 TAKE 1 TABLET 180 tablet 1 09/30/2019 Active mg BY MOUTH tabletIndications: TWICE DAILY Chronic right NEEDED FOR shoulder pain PAIN BYDUREON BCISE 2 inject 2 mg 4 Syringe 2 09/30/2019 Active mg/0.85 mL under the AtInIndications: skin weekly. Type 2 diabetes mellitus without complication, without long-term current use of insulin MELOXICAM 15 mg Take 1 tablet 90 tablet 0 10/15/2019 Active tabletIndications: by mouth once Arthritis daily latanoprost 0.005 % Place 1 Drop 7.5 mL 4 02/20/2020 Active ophthalmic in both eyes dropsIndications: at bedtime. Nuclear senile cataract of right eye LISINOPRIL 10 mg Take 1 tablet 90 tablet 0 03/13/2020 Active tabletIndications: by mouth once Essential daily hypertension lisinopril 10 mg Take 1 tablet 90 tablet 5 01/09/2019 03/13/20 20 Discontinued tabletIndications: by mouth Essential daily. hypertension documented as of this encounter (statuses as of 03/13/2020) Active Problems Problem Noted Date Nuclear senile cataract of right eye 02/20/2020 Overview: Added automatically from request for andres yin [id number] Acute cystitis without hematuria 07/08/2019 Insomnia, unspecified [...] Added automatically from request for andres yin [id number] Myogenic ptosis, bilateral 09/05/2017 Overview: Added automatically from request for andres ernandezy [id number] Pseudophakia of left eye 07/13/2017 Senile nuclear sclerosis right eye 07/13/2017 Essential hypertension 11/30/2016 Dermatochalasis 01/12/2016 Glaucoma suspect of both eyes 01/12/2016 Vitamin D deficiency 11/04/2015 AC separation, type 3, left, sequela 10/01/2015 Postoperative hypothyroidism 05/04/2015 Hyperlipidemia 05/04/2015 Hypocalcemia 05/04/2015 Postmenopausal 05/04/2015 Cervicalgia of xhjmxqet-iutgdya-apgik region 5 Arthropathy of cervical facet joint 02/15/2015 Medicare annual wellness visit, initial 01/06/2015 Type 2 diabetes mellitus without complication 10/10/19 15 Dizziness and giddiness 12/27/2005 documented as of this encounter (statuses as of 03/13/2020) Resolved Problems Problem Noted Date Resolved Date Senile nuclear sclerosis, bilateral 02/13/201706/29 Overview: Added automatically from request for andres ernandezy [id number] Cataracts, bilateral 01/12/2016 07/13/2017 Chest pain 12/26/2015 07/05/2019 Scarlet albicans infection 11/13/2015 07/05/2019 documented as of this encounter (statuses as of 03/13/2020) Immunizations Name Administration Dates Next Due Influenza [...] Treatment Date Type Specialty Care Team Description 03/17/2020 Office Visit Endocrinology Alfonso Rao, Diabetes & MD Metabolism [address] [place] [address] [phone] 04/01/2020 Hospital Surgery Abilio De Los Santos, Nuclear senil e cataract Encounter MD of right eye [address] [address] [phone] 04/01/2020 Surgery Surgery Abilio De Los Santos, PHACOEMULSIFI CATION OF MD CATARACT WITH INTRAOCULAR [address] LENS IMPLANT [address] [address] [phone] 04/02/2020 Office Visit Ophthalmology Abilio De Los Santos MD [address] [address] [phone] 04/09/2020 Office Visit Ophthalmology Abilio De Los Santos MD [id number] [place] [address] [phone] 05/06/2020 Office Visit Family Medicine Miguel Ángel Posadas MD [address] [place] [address] Dr Donovan [place], [place] [address] 05/19/2020 Office Visit Ophthalmology Abilio De Los Santos MD 301 [facility] OC[address] [place] [address] [phone] Health Maintenance Due Date Last Done Comments [...] of this encounter Implants Implanted Type Area Residential Care Officer Device Shelf Model / Serial Identifier Expiration / Lot Date Lens, Ronnie #Sn60wf 20.5d - [id number] LENS Left: Eye Ronnie 01/28/2021 SN60WF 20.5D / Implanted: Qty: 1 on 03/06/2017 by Abilio De Los Santos MD at [facility] 3 [id number] / 0 documented as of this encounter Results Not on filedocumented in this encounter Visit Diagnoses Diagnosis Nuclear senile cataract of right eye - P rimary Essential hypertension Unspecified essential hypertension Nuclear senile cataract of right eye documented in this encounter Insurance Payer Benefit Plan / Subscriber ID Effective Dates Phone Addre ss Type Group MEDICARE MEDICARE PART [id number] 2019-Presen [phone] Medicare A & B t 2 [id number] [place] [id number] [facility] MEDICAID OF [id number] 2019-Presen [phone] [address] Medicaid [place] t 0 [id number] [place] [address] documented as of this encounter
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
--- OUTSIDE RECORDS SUMMARY | 2020-03-17 19:36 | XMS REPORT | Summary of Care ---
:1955 Author Organization [facility] Address [address] [place] [id number] Care Team Providers Name Role Phone Kasey Louis MD Primary Care Provider [phone] Kim Odonnell MD Unavailable Reason for Visit Reason Comments Refill Request Encounter Details Date Type Department Care Team Description 03/13/2020 Refill [facility] [place] Miguel Ángel fonseca MD Refill Request Adult Primary Care- [address] [facility] [address] [place] [address] [address] [place] [address] [phone] Allergies Active Allergy Reactions Severity Noted Date [...] by mouth at Insomnia, bedtime. unspecified type gabapentin 300 mg Take 1 90 capsule [...] tabletIndications: by mouth once Essential daily hypertension EZETIMIBE 10 mg Take 1 tablet 90 tablet 0 03/13/2020 Active tabletIndications: by mouth once Dyslipidemia, Type daily 2 diabetes mellitus without complication, without long-term current use of insulin ezetimibe 10 mg Take 1 tablet 90 tablet 1 07/05/2019 0 Discontinued tabletIndications: by mouth Dyslipidemia, Type daily. 2 diabetes mellitus without complication, without long-term current use of insulin documented as of this encounter (statuses as of 03/13/2020) Active Problems Problem Noted Date Nuclear senile cataract of right eye 02/20/2020 Overview: Added automatically from request for andres ernandezy [id number] Acute cystitis without hematuria 07/08/2019 Insomnia, unspecified [...] Added automatically from request for andres annamaria [id number] Myogenic ptosis, bilateral 09/05/2017 Overview: Added automatically from request for andres annamaria [id number] Pseudophakia of left eye 07/13/2017 Senile nuclear sclerosis right eye 07/13/2017 Essential hypertension 11/30/2016 Dermatochalasis 01/12/2016 Glaucoma suspect of both eyes 01/12/2016 Vitamin D deficiency 11/04/2015 AC separation, type 3, left, sequela 10/01/2015 Postoperative hypothyroidism 05/04/2015 Hyperlipidemia 05/04/2015 Hypocalcemia 05/04/2015 Postmenopausal 05/04/2015 Cervicalgia of xlcvatlg-zapkddd-fmknk region 5 Arthropathy of cervical facet joint 02/15/2015 Medicare annual wellness visit, initial 01/06/2015 Type 2 diabetes mellitus without complication 10/10/19 15 Dizziness and giddiness 12/27/2005 documented as of this encounter (statuses as of 03/13/2020) Resolved Problems Problem Noted Date Resolved Date Senile nuclear sclerosis, bilateral 02/13/201706/29 Overview: Added automatically from request for andres annamaria [id number] Cataracts, bilateral 01/12/2016 07/13/2017 Chest pain 12/26/2015 [...] this encounter Miscellaneous Notes Telephone Encounter - Miguel Ángel Posadas MD - 03/13/2020 5:38 PM CSTRx sent, let patient know, and to follow-up as scheduled. N CONDUCTOR documented in this encounter Plan of Treatment Date Type Specialty Care Team Description 03/17/2020 Office Visit Endocrinology Alfonso Rao, Diabetes & MD Metabolism [address] [place] [address] [phone] 04/01/2020 Hospital Surgery Abilio De Los Santos, Nuclear senil e cataract Encounter MD of right eye [id number] [place] [address] [phone] 04/01/2020 Surgery Surgery Abilio De Los Santos, PHACOEMULSIFI CATION OF CATARACT WITH INTRAOCULAR [address] LENS IMPLANT [id number] [place] [address] [phone] 04/02/2020 Office Visit Ophthalmology Abilio De Los Santos MD [id number] [place] [address] [phone] 04/09/2020 Office Visit Ophthalmology Abilio De Los Santos MD [id number] [place], [place] [id number] 05/06/2020 Office Visit Family Medicine Miguel Ángel Posadas MD [address] [place] [address] [place] [address] [phone] 05/19/2020 Office Visit Ophthalmology Abilio De Los Santos MD [id number] [place], [place] [address] Health Maintenance Due Date Last Done Comments [...] of this encounter Implants Implanted Type Area Lock Tender Device Shelf Model / Serial Identifier Expiration / Lot Date Lens, Ronnie #[id number] 20.5d - [id number] LENS Left: Eye Ronnie 01/28/2021 [id number] 20.5D / Implanted: Qty: 1 on 03/06/2017 by Abilio De Los Santos MD at [facility] [id number] [id number] / 0 documented as of this encounter Results Not on filedocumented in this encounter Visit Diagnoses Diagnosis Nuclear senile cataract of right eye - P rimary Dyslipidemia Other and unspecified hyperlipidemia Type 2 diabetes mellitus without complic ation, without long-term current use of insulin Nuclear senile cataract of right eye documented in this encounter Insurance Payer Benefit Plan / Subscriber ID Effective Dates Phone Addre ss Type Group MEDICARE MEDICARE PART [id number] 2019-Presen [phone] Medicare A & B t 2 [id number] [place] [phone] [facility] MEDICAID OF [id number] 2019-Presen [phone] Medicaid [place] t 0 [id number] [place] [address] documented as of this encounter
[2020-03-17 21:23] LABS: Absolute Lymphocytes (CBC) 0.9 K/uL (0.7-4.9); Basophils % 1.4 % (0-1.3); Hematocrit 33.8 % (36.0-45.0); Lymphocytes % 9.1 % (15.3-44.8); MPV 8.7 fL (7.6-11.3); RBC Red Blood Cell Count 3.98 M/uL (3.86-4.86)
[2020-03-17] MEDS ORDERED: NA CHLORIDE 0.9% 1,000 ML ONE (21:24)
[2020-03-17] MEDS ORDERED: CEFTRIAXONE/SWI 1gm 1 GM/10 ML SYR ONE (21:24)
[2020-03-17 21:35] LABS: Albumin 2.5 g/dL (3.4-5.0); Bilirubin Total 0.3 mg/dL (0.2-1.0); Potassium 3.7 mmol/L (3.5-5.1)
[2020-03-17 22:07] LABS: Urine Blood 3+ (NEG); Urine Glucose 2+ (NEG); Urine Protein 2+ (NEG); Urine Specific Gravity 1.025 (1.005-1.030); Urine pH 5.5 (5.0-7.0)
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
[2020-03-17] MEDS ORDERED: INSULIN -REGULAR HUMAN 50 UNIT/0.5 ML ML ONE (22:45)
[2020-03-17] MEDS ORDERED: SMZ./TMP. 800/160 MG TABLET ONE (22:46)
[2020-03-17] MEDS ORDERED: CIPROFLOXACIN HCL 500 MG TAB ONE (22:46)
--- NOTE | 2020-03-18 10:31 | RAD REPORT ---
EXAM DESCRIPTION: CT - Stone Protocol - 03/18/2020 6:58 am CLINICAL HISTORY: FLANK PAIN TECHNIQUE: Contiguous axial images obtained through the abdomen and pelvis without IV contrast. Kelly nal and sagittal reformatted images were provided. This exam was performed according to our departmental dose-optimization program, which includes autom ated exposure control, adjustment of the mA and/or kV according to patient size and/or use of iterati ve reconstruction technique. COMPARISON: None available for comparison. FINDINGS: Lung bases: No focal consolidation. Coronary artery calcification. Liver: The liver is enlarged. Gallbladder and biliary system: Prior cholecystectomy. Pancreas: Mild pancreatic parenchymal atrophy. Spleen: Grossly unremarkable Adrenals: Unremarkable Kidneys: Lobulated renal contour bilaterally. Mild bilateral perinephric stranding. No calculi. No hy dronephrosis. Bowel: Postsurgical changes of the proximal stomach. No obstruction. No appreciable mucosal thickenin g. Appendix: Normal caliber appendix. No findings to suggest acute appendicitis. Urinary bladder: Unremarkable Reproductive: There has been a hysterectomy. No adnexal cysts or masses are identified. Lymph nodes: No pathologically enlarged lymph nodes. Peritoneum: No focal fluid collection. No free air. Vessels: Mild to moderate atherosclerotic disease. No abdominal aortic aneurysm. Abdominal wall: Tiny fat-containing umbilical hernia. Bones: Multilevel spondylosis. No acute fracture. IMPRESSION: 1. Mild bilateral perinephric stranding. This is nonspecific and may be chronic. Acute superimposed inflammatory process not excluded. 2. Other findings as above. Electronically signed by: Monika Milligan MD 03/17/2020 9:57 PM LOSS PREVENTION/SAFETY DISTRICT MANAGER Due to temporary technical issues with the PACS/Fluency reporting system, reports are being signed by the in house radiologist without review as a courtesy to ensure prompt reporting. The interpreting r adiologist is fully responsible for the content of the report.
== END 2020-03-17 23:19 | disposition home or self-care (01) ==
LOC: ER 19:29
DX: N39.0 Urinary tract infection, site not specified (principal); E11.9 Type 2 diabetes mellitus without complications; Z88.5 Allergy status to narcotic agent
CPT/HCPCS: 96365; 87088; 85025; 87086; 36415; 82947; 87077; 87186; 81003; 83690; 80053; 76377; 74176; 96375; 99284; J0696; J7030